=== PATIENT | female | born 1955 | race Native Hawaiian/Other Pacific Islander ===

== ENCOUNTER 2019-09-25 09:38 | Outpatient (CLI) | payer OTHER ==
[~2019-09-25] VITALS: Ht 154.9 cm; Wt 63.5 kg
== END 2019-09-25 11:07 | disposition home or self-care (01) ==
LOC: INF 09:38
DX: M81.0 Age-related osteoporosis without current pathological fracture (principal)
CPT/HCPCS: 36415; 82310; 96372; J0897

== ENCOUNTER 2020-03-29 10:07 | Outpatient (CLI) | payer OTHER ==
[~2020-03-29] VITALS: Ht 154.9 cm; Wt 63.5 kg
[2020-03-29 10:10] VITALS: BP 160/69; TEMP 98.6
== END 2020-03-29 11:15 | disposition home or self-care (01) ==
LOC: INF 10:07
DX: M81.0 Age-related osteoporosis without current pathological fracture (principal)
CPT/HCPCS: 36415; 82310; 96372; J0897

== ENCOUNTER 2023-02-27 08:59 | Outpatient (CLI) | payer OTHER | END 2023-02-27 18:59 | disposition home or self-care (01) | LOC: US 08:59 | PROVIDERS: ATTEND Internal Medicine | DX: Z08 Encounter for follow-up examination after completed treatment for malignant neoplasm (principal); Z85.3 Personal history of malignant neoplasm of breast ==